=== PATIENT | female | born 1945 | race Caucasian/White ===

== ENCOUNTER 2020-09-25 10:35 | Outpatient (CLI) | payer MEDICARE, OTHER | END 2020-09-25 10:36 | disposition home or self-care (01) | LOC: TBSIIMAG 10:35 | PROVIDERS: ATTEND Neurological Surgery | DX: M47.26 Other spondylosis with radiculopathy, lumbar region (principal); M51.16 Intervertebral disc disorders with radiculopathy, lumbar region | CPT/HCPCS: 72110; 72148 ==

== ENCOUNTER 2021-11-06 10:45 | Outpatient (CLI) | payer MEDICARE, OTHER | END 2021-11-06 10:46 | disposition home or self-care (01) | LOC: BICRAD 10:45 | PROVIDERS: ATTEND Internal Medicine Rheumatology | DX: M54.2 Cervicalgia (principal); M50.30 Other cervical disc degeneration, unspecified cervical region; M48.02 Spinal stenosis, cervical region; M25.78 Osteophyte, vertebrae | CPT/HCPCS: 72052 ==

== ENCOUNTER 2022-06-04 15:23 | Observation (INO) | payer MEDICARE, OTHER ==
[2022-06-04 17:38] LABS: #Eosinphils 0.1 thou/uL (0.0-0.7); #Monocytes 0.6 thou/uL (0.11-0.59); #Neutrophils 2.5 thou/uL (1.40-6.50); %Basophils 0.6 % (0.0-1.0); %Eosinophils 1.6 % (0.0-10.0); %Monocytes 11.2 % (0.0-10.0); %Neutrophils 48.6 % (42.0-75.0); Hemoglobin 13.8 g/dL (12.0-16.0); Mean Corpuscular HGB CONC 33.7 g/dL (32.0-36.0); Mean Corpuscular Hemoglobin 32.8 pg (27.0-31.0); Mean Corpuscular Volume 97.3 fl (78.0-98.0); Mean Platelet Volume 7.6 fL (7.4-10.4); Platelet Count 199 10x3/uL (130-400); RBC Distribution Width 11.7 % (11.5-14.5); Red Blood Cell (RBC) Count 4.22 mill/uL (4.20-5.40); White Blood Cell (WBC) Count 5.2 10x3/uL (4.8-10.8)
[2022-06-04 17:58] VITALS: BMI 26.4
[2022-06-04 17:59] LABS: Anion Gap 13 mmol/L (10-20); BUN (Urea Nitrogen) 21 mg/dL (9.8-20.1); Calc. Creatinine Clearance 66 mL/min (70-130); Calcium 9.6 mg/dL (7.8-10.44); Carbon Dioxide 27 mmol/L (23-31); Chloride 105 mmol/L (98-107); Estimated GFR 88; Glucose 100 mg/dL (83-110); Potassium 3.6 mmol/L (3.5-5.1); Sodium 141 mmol/L (136-145)
[2022-06-04 18:04] LABS: Troponin I Less than 0.010 ng/mL (< 0.028)
[2022-06-04 20:31] LABS: Troponin I Less than 0.010 ng/mL (< 0.028)
[2022-06-04] MEDS: Metoprolol Tartrate 25 MG TAB PO SCH (20:49)
[2022-06-05] MEDS ORDERED: Aspirin Chewable 81 MG TAB PO SCH (09:00)
[2022-06-05] MEDS ORDERED: Regadenoson 0.4 MG/5 ML SYRINGE ONE (09:13)
[2022-06-05] MEDS: Metoprolol Tartrate 25 MG TAB PO SCH (15:53)
[2022-06-05 16:09] VITALS: BP 130/63; TEMP 97.7
== END 2022-06-05 17:25 | disposition home or self-care (01) ==
LOC: 2SW 15:34
PROVIDERS: ADMIT Internal Medicine Cardiovascular Disease; ATTEND Internal Medicine Cardiovascular Disease
DX: R07.89 Other chest pain (principal); E78.00 Pure hypercholesterolemia, unspecified; I10 Essential (primary) hypertension; Z79.899 Other long term (current) drug therapy; Z88.5 Allergy status to narcotic agent; Z20.822 Contact with and (suspected) exposure to COVID-19
CPT/HCPCS: 78452; 80048; 84484 ×2; 85025; 93017; 94760; U0003; U0005; 36415; G0378; G0379; J2785

== ENCOUNTER 2023-09-18 08:25 | Outpatient (CLI) | payer MEDICARE, OTHER | END 2023-09-18 08:26 | disposition home or self-care (01) | LOC: NM 08:25 | PROVIDERS: ATTEND Internal Medicine | DX: G20.C Parkinsonism, unspecified (principal) | CPT/HCPCS: 78803; A9584 ×2 ==

== ENCOUNTER 2023-10-31 08:10 | Outpatient (CLI) | payer MEDICARE, OTHER | END 2023-10-31 08:11 | disposition home or self-care (01) | LOC: BICMAMMO 08:10 | PROVIDERS: ATTEND Internal Medicine Rheumatology | DX: M81.0 Age-related osteoporosis without current pathological fracture (principal); M85.851 Other specified disorders of bone density and structure, right thigh; M85.852 Other specified disorders of bone density and structure, left thigh | CPT/HCPCS: 77080 ==

== ENCOUNTER 2023-11-26 13:36 | Outpatient (CLI) | payer MEDICARE, OTHER | END 2023-11-26 13:37 | disposition home or self-care (01) | LOC: BICRAD 13:36 | PROVIDERS: ATTEND Internal Medicine | DX: M54.50 Low back pain, unspecified (principal); M47.816 Spondylosis without myelopathy or radiculopathy, lumbar region; M43.16 Spondylolisthesis, lumbar region | CPT/HCPCS: 72100 ==

== ENCOUNTER 2024-06-10 09:49 | Outpatient (CLI) | payer MEDICARE, OTHER | END 2024-06-10 09:50 | disposition home or self-care (01) | LOC: BICMAMMO 09:49 | PROVIDERS: ATTEND Internal Medicine | DX: Z12.31 Encounter for screening mammogram for malignant neoplasm of breast (principal); Z80.3 Family history of malignant neoplasm of breast; Z91.89 Other specified personal risk factors, not elsewhere classified | CPT/HCPCS: 77063; 77067 ==